=== PATIENT | female | born 1935 | race Caucasian/White ===

== ENCOUNTER 2024-10-15 12:00 | Emergency (ER) | payer MEDICARE, OTHER, SELFPAY ==
[2024-10-15 12:01] VITALS: BP 191/103
[2024-10-15 13:00] VITALS: BP 160/76
--- NOTE | 2024-10-15 13:13 | ED.GENMED ---
History of Present Illness
<Shameka Barboza PA-C - Last Filed: 10/15/24 17:36>
General
Chief Complaint: Fall
Source: patient and family
Exam Limitations: none
Time Seen by Provider: 10/15/24 12:27
Nursing documentation reviewed up to this point in time: agreed with
History of Present Illness
History of Present Illness:
pt is a 89 y/o F
with h/o afib and valve repacement on eliquis
had mechanical fall yesterday afternoon
caregiver was with her but in another room; she had gotten dressed and fell, saying she lost her balance and landed with her R arm outstretched
she has had pain and limited ROM of R shulder since
she denied hitting her head, and has not had any obvious change in mental status
she chronically has dizziness and takes meclizine but said she was not dizzy
she had aleve this morning 10 am
if she doesn't move the arm,s he feels better
no chest pain, rib pain, headache, neck pain, hip pain
Past History
<Shameka Barboza PA-C - Last Filed: 10/15/24 17:36>
Past History
ED Past Medical History: HTN, Hypercholesterolemia and Valvular disease
ED Past Surgical History: Gynecological
Social History
Tobacco: Non-smoker
Review of Systems
<Shameka Barboza PA-C - Last Filed: 10/15/24 17:36>
Review of Systems
Allergies reviewed?: Yes
All Other Systems: Not applicable
Phy Exam
<Shameka Barboza PA-C - Last Filed: 10/15/24 17:36>
Physical Exam
Physical Exam:
GENERAL: Alert , in no apparent distress
HEAD: NCAT
NECK: no midline tenderness, active ROM intact, no paraspinal muscle tenderness;
EYE: pupils equal and reactive, EOMs intact.
ENT: o/p clr, mmm. no hemotympanum
CARDIAC: Regular rate and rhythm, no edema
LUNGS: Clear breath sounds bilaterally, no acute respiratory distress, no wheezes/rales/rhonchi
ABDOMEN: Soft, without focal tenderness, no r/g, no cvat
NEUROLOGICAL: Alert and oriented, no focal neuro deficits, CN intact, 5/5 strength, sensation intact
SKIN: Warm and dry,
MUSCULOSKELETAL: tender R shoulder joint with very limited painful ROM of the arm; no deformity; no humerus, forearm/elbow/hand tendenress;
PSYCH: Normal and appropriate interaction.
Course
<Shameka Barboza PA-C - Last Filed: 10/15/24 17:36>
Orders/Labs/Results
Orders:
Orders
10/15/24 13:10
CT Cervical Spine W/o Iv Contr Urgent
Comment:
Reason For Exam: fall
Hydrocodone 5/APAP 325 [Kuna 5/325] 1 tablet PO NOW STA
CR Chest - 2 Views Urgent
Comment:
Reason For Exam: luan
Shoulder, Right, Trauma [CR Shoulder, Trauma - Right] Urgent
Comment:
Reason For Exam: fall R shoulder pain
10/15/24 13:11
CT Head W/o Iv Contrast Urgent
Comment:
Reason For Exam: fall on eliquis
10/15/24 17:20
CR Shoulder - Right Min 2 View Urgent
Comment:
Reason For Exam: post reduction
Vital Signs
Initial and Last Documented VS:
Initial Vital Signs
Temp Pulse Resp BP Pulse Ox
36.8 C 102 18 191/103 97
10/15/24 12:01 10/15/24 12:01 10/15/24 12:01 10/15/24 12:01 10/15/24 12:01
Last Documented Vital Signs
Temp Pulse Resp BP Pulse Ox
36.8 C 102 18 127/80 97
10/15/24 12:01 10/15/24 12:01 10/15/24 12:01 10/15/24 16:03 10/15/24 12:01
<Mendoza Chin DO - Last Filed: 10/15/24 16:26>
Orders/Labs/Results
Orders:
Orders
10/15/24 13:10
CT Cervical Spine W/o Iv Contr Urgent
Comment:
Reason For Exam: fall
Hydrocodone 5/APAP 325 [Kuna 5/325] 1 tablet PO NOW STA
CR Chest - 2 Views Urgent
Comment:
Reason For Exam: luan
Shoulder, Right, Trauma [CR Shoulder, Trauma - Right] Urgent
Comment:
Reason For Exam: fall R shoulder pain
10/15/24 13:11
CT Head W/o Iv Contrast Urgent
Comment:
Reason For Exam: fall on eliquis
10/15/24 17:20
CR Shoulder - Right Min 2 View Urgent
Comment:
Reason For Exam: post reduction
Vital Signs
Initial and Last Documented VS:
Initial Vital Signs
Temp Pulse Resp BP Pulse Ox
36.8 C 102 18 191/103 97
10/15/24 12:01 10/15/24 12:01 10/15/24 12:01 10/15/24 12:01 10/15/24 12:01
Last Documented Vital Signs
Temp Pulse Resp BP Pulse Ox
36.8 C 102 18 127/80 97
10/15/24 12:01 10/15/24 12:01 10/15/24 12:01 10/15/24 16:03 10/15/24 12:01
Procedures
<Shameka Barboza PA-C - Last Filed: 10/15/24 17:36>
Joint/Fracture Reduction
Right Anterior Shoulder:
Indication for procedure:: RIGHT ANTERIOR SHOULDER DISLOCATION
Procedure completed by: SHAMEKA BARBOZA
Consent form signed: No
Anesthesia/sedation: 1% Lidocaine and Injection to joint space
Injury was: closed
Further treatement: needs re-check only
Post reduction exam: stable
Capillary Refill: normal
Normal distal neurovascular exam?: Yes
<Shameka Barboza PA-C - Last Filed: 10/15/24 17:36>
MDM/Problems Addressed
Differential Diagnosis Includes:
shoulder dislocation, shoulder fracture, head injury
MDM/Problems Addressed:
89 y/o F
fell yesterday with outstretched arm
unable to move shoulder
no rib pain/trouble breathing
no head strike but on eliquis
neuro intact
very limited painful ROM of shoulder, step off concerning for fx/dislocation
xray indep reviewed and shows anterior shoulder disloctiaon, no fx
head/neck ct no acute dinfings
cxr clear
intraarticular lidocaine injection 5 cc lidocaine 1%
traction and external rotation and hsoulder was reduced
xray confirmed
dc sling, fu ortho
<Shameka Barboza PA-C - Last Filed: 10/15/24 17:36>
*Critical Care Note
Total Time (30-74mins, 75-104mins- exclusive of procedures): Not Applicable
ED Attending Note
<Shameka Barboza PA-C - Last Filed: 10/15/24 17:36>
-
Portions of this chart may have been created with voice recognition software.� Occasional wrong word or��sound alike� substitutions may have occurred due to the inherent limitations of voice recognition software.
<Mendoza Chin DO - Last Filed: 10/15/24 16:26>
ED Attending Note
Patient seen and examined by attending physician: Yes
I performed a history and physical exam of patient and discussed management with resident, I reviewed resident's note and agree with documented findings and plan of care.: Yes
ED Attending Note:
Seen with PA, agree with assessment plan elderly female status post fall dislocated right shoulder
Discharge Plan
Departure
Patient Disposition: Home (Routine Discharge)
Date of Disposition: 10/15/24
Time of Disposition: 17:30
Patient with high blood pressure during this ER visit?: No
Condition: Fair
Covid-19: Not Applicable
Discharge Problem:
Anterior shoulder dislocation, Fall
Prescriptions:
No Action
isosorbide mononitrate 30 mg tablet extended release 24 hr
30 mg PO DAILY
hydralazine 25 mg tablet
25 mg PO DAILYPRN PRN (Reason: high blood pressure)
meclizine 12.5 mg tablet
12.5 mg PO BID
diltiazem HCl 360 mg capsule,extended release 24hr
360 mg PO DAILY
simvastatin 20 mg tablet
20 mg PO HS
furosemide 20 mg tablet
20 mg PO DAILYPRN PRN (Reason: fluid collections)
ezetimibe 10 mg tablet
10 mg PO DAILY
metoprolol tartrate 25 mg tablet
25 mg PO BID
dexlansoprazole 30 mg capsule,biphase delayed releas
30 mg PO DAILY
Eliquis 2.5 mg tablet
2.5 mg PO BID
mupirocin 2 % Ointment
1 applic TOPICAL BID
zolpidem 10 mg Tablet
10 mg PO HS
Rx Instructions:
08/23/2023, patient filled this medication on 08/03/2023 for 30 tablets according to PDMP.
amoxicillin 500 mg Capsule
500 mg PO Q8H Qty: 12 0RF
Referrals:
Laly Ortega MD [Family Provider] - Follow up in 2-3 days
Vignesh Ge MD [Active] - Follow up in 5-7 days (ORTHO)
Activity Restrictions/Additional Instructions:
DAIN DISLOCATED HER SHOULDER BUT IT WAS PUT BACK IN PLACE
KEEP HER IN THE SLING
HAVE HER SEE AN ORTHOPEDIST FOR FOLLOW UP
TYLENOL EVERY 8 HOURS NEEDED FOR PAIN
ICE OFF AND ON
HEAD/NECK SHOWED NO SIGNS OF TRAUMA
RETURN FOR ANY COCNERNS.
Interventions
Interventions:
*Risk Screen - Suicide Last Done: 10/15/24 12:01
*General Assessment Last Done: 10/15/24 12:01
*Neglect/Abuse Screening Last Done: 10/15/24 12:01
*ED COVID-19 Vaccine History Last Done: 10/15/24 12:01
ED-Musculoskeletal Assessment Last Done: 10/15/24 13:01
ED- Neurological Assessment Last Done: 10/15/24 13:01
ED-Skin Assessment Last Done: 10/15/24 13:01
Discharge Date and Time
Print Language: Vincentian
[2024-10-15] MEDS: NORCO 5/325 1 TABLET PO (13:16)
[2024-10-15 16:03] VITALS: BP 127/80
== END 2024-10-15 17:45 | disposition home or self-care (01) ==
LOC: EMR 12:00
PROVIDERS: EMERGENCY PHYSICIAN Emergency Medicine; FAMILY PHYSICIAN Internal Medicine
DX: S43.004A Unspecified dislocation of right shoulder joint, initial encounter (principal); W01.0XXA Fall on same level from slipping, tripping and stumbling without subsequent striking against object, initial encounter; I48.91 Unspecified atrial fibrillation; I10 Essential (primary) hypertension; E78.00 Pure hypercholesterolemia, unspecified; Z79.01 Long term (current) use of anticoagulants
CPT/HCPCS: 99283; 23650; 70450; 71046; 72125; 73030

== ENCOUNTER 2024-10-16 14:08 | Emergency (ER) | payer MEDICARE, OTHER, SELFPAY ==
[2024-10-16] VITALS (13 sets, daily range): BP systolic 123–168; BP diastolic 63–102
--- NOTE | 2024-10-16 14:28 | ED.GENMED ---
History of Present Illness
<Bart Estrada PA-C - Last Filed: 10/16/24 18:22>
General
Chief Complaint: Musculo-Skeletal Complaint
Source: patient
Time Seen by Provider: 10/16/24 14:20
History of Present Illness
History of Present Illness:
89-year-old Albanian-speaking female with past medical history of hypertension, hyperlipidemia, atrial fibrillation, status post aortic valve replacement presenting to the emergency department for reevaluation after she was seen here yesterday when
she had an accidental fall which caused her to have a right anterior shoulder dislocation which was reduced without complication but still having pain when she is up and moving. Patient has been using the sling as directed except she did take the
sling off while she was sleeping last night. No new falls or injuries, no weakness or numbness. No other concerns. Daughter has yet to contact the orthopedic office for follow-up visit.
Past History
<Bart Estrada PA-C - Last Filed: 10/16/24 18:22>
Past History
ED Past Medical History: Arrthythmia, HTN, Hypercholesterolemia and Valvular disease
ED Past Surgical History: Cardiac and Gynecological
Social History
Tobacco: Non-smoker
Alcohol: None
Drug: None
Personal:
Living: with family
Review of Systems
<Bart Estrada PA-C - Last Filed: 10/16/24 18:22>
Review of Systems
All Other Systems: ROS reviewed and negative except as documented in HPI and ROS
Phy Exam
<Bart Estrada PA-C - Last Filed: 10/16/24 18:22>
Physical Exam
Physical Exam:
GENERAL: Alert , in no apparent distress
EYE: conjunctiva clear
Head: Normocephalic atraumatic
NECK: Supple,
ENT: mmm.
LUNGS: no acute respiratory distress
NEUROLOGICAL: Alert and oriented
SKIN: Warm and dry, skin intact.
MUSCULOSKELETAL: well perfused. Right shoulder: No obvious deformity and no focal tenderness. Sling in place. Did not assess range of motion of the right shoulder but patient able to range of motion the right elbow, wrist and digits without
difficulty. Easily palpable radial pulse. Sensation intact throughout all digits.
PSYCH: Normal and appropriate interaction.
Scores
<Bart Estrada PA-C - Last Filed: 10/16/24 18:22>
Heart Failure Risk
Heart Failure Risk Score: Not Applicable
Heart Score for Chest Pain Patients
STEMI patient?: Not applicable
Withdrawal Assessment of Alcohol
Withdrawal Assessment Completed?: Not applicable
Course
<Bart Estrada PA-C - Last Filed: 10/16/24 18:22>
Orders/Labs/Results
Orders:
Orders
10/16/24 14:20
Shoulder, Right, Trauma [CR Shoulder, Trauma - Right] Urgent
Comment:
Reason For Exam: pain
10/16/24 16:20
Propofol [Diprivan] 20 ml .ROUTE .STK-MED
10/16/24 16:40
Shoulder, Right 2 Views [CR Shoulder - Right Min 2 View] Urgent
Comment: portable
Reason For Exam: post reduction
Vital Signs
Initial and Last Documented VS:
Initial Vital Signs
Temp Pulse Resp BP Pulse Ox
98.0 F 96 20 168/90 96
10/16/24 14:11 10/16/24 14:11 10/16/24 14:11 10/16/24 14:11 10/16/24 14:11
Last Documented Vital Signs
Temp Pulse Resp BP Pulse Ox
98.1 F 82 20 135/84 97
10/16/24 17:18 10/16/24 17:18 10/16/24 17:18 10/16/24 17:18 10/16/24 17:18
<Mendoza Chin DO - Last Filed: 10/16/24 16:44>
Orders/Labs/Results
Orders:
Orders
10/16/24 14:20
Shoulder, Right, Trauma [CR Shoulder, Trauma - Right] Urgent
Comment:
Reason For Exam: pain
10/16/24 16:20
Propofol [Diprivan] 20 ml .ROUTE .STK-MED
10/16/24 16:40
Shoulder, Right 2 Views [CR Shoulder - Right Min 2 View] Urgent
Comment: portable
Reason For Exam: post reduction
Vital Signs
Initial and Last Documented VS:
Initial Vital Signs
Temp Pulse Resp BP Pulse Ox
98.0 F 96 20 168/90 96
10/16/24 14:11 10/16/24 14:11 10/16/24 14:11 10/16/24 14:11 10/16/24 14:11
Last Documented Vital Signs
Temp Pulse Resp BP Pulse Ox
98.1 F 82 20 135/84 97
10/16/24 17:18 10/16/24 17:18 10/16/24 17:18 10/16/24 17:18 10/16/24 17:18
Procedures
<Bart Estrada PA-C - Last Filed: 10/16/24 18:22>
Moderate Sedation
ASA Risk Score: Class II
Chart and allergies reviewed: Yes
Consent for anesthesia obtained: Yes
Time out completed (validating right patient & procedure): Yes
Moderate Sedation Start Time(when first medication is given): 16:38
History of difficult intubation: No
Airway free of obstruction: Yes
Patient has a gag reflex: Yes
Patient is able to open mouth: Yes
Patient has no dentures: No
Patient has no loose teeth: Yes
Medication administered by Provider during Moderate Sedation: IV Propofol (mg)
Total dose administered: 40
Time drug administered: 16:38
Moderate Sedation Procedure End Time: 16:48
Joint/Fracture Reduction
Right Shoulder:
Indication for procedure:: Dislocation
Procedure completed by: Elsy/Natalie
Consent form signed: Yes
Joint reduced: with anesthesia sedation
Injury was: closed
Further treatement: needs further treatment
Post reduction exam: stable
Capillary Refill: normal
<Bart Estrada PA-C - Last Filed: 10/16/24 18:22>
MDM/Problems Addressed
Differential Diagnosis Includes:
reoccuring dislocation/subluxation, non-displaced fx, pain post procedure, ligamentous/tendon injury/rotator cuff injury
MDM/Problems Addressed:
89-year-old female presenting back to the emergency department for reevaluation after being seen yesterday for right shoulder dislocation status post closed reduction of the right shoulder. Patient noting continued pain when she is up and moving.
She is here neurovascularly intact. There does not appear to be any obvious deformity of the right shoulder presently. Will reobtain x-ray to further evaluate and rule out reoccurring dislocation/subluxation. Due to patient being on Eliquis she
is not a candidate for anti-inflammatories. Discussed with family possibility for short-term course of Percocet/Vicodin for pain control but discuss side effects including constipation and sleepiness/drowsiness. Caregiver/daughter expressed
understanding. Disposition pending
<Bart Estrada PA-C - Last Filed: 10/16/24 18:22>
*Radiology
Radiology exam reviewed: preliminary read by ED provider (Closed right anterior shoulder dislocation)
*Pulse Oximetry
Patient hypoxic: no
*Critical Care Note
Total Time (30-74mins, 75-104mins- exclusive of procedures): Not Applicable
Data Reviewed
Review of Other/Old Records Reveals: Records and Radiology Studies
Source: records and family
<Bart Estrada PA-C - Last Filed: 10/16/24 18:22>
Patient Management
Social determinants of health affecting care: Living situation and Strong social support
Escalation/DeEscalation of care consider admission/obs:
Patient's x-ray ended up showing a closed right anterior shoulder dislocation. Sedation and procedure note as above. Patient tolerated procedure well. She remained in a shoulder sling following the procedure and was advised to remain within the
sling due to concern for possibility of spontaneous dislocation. Daughter will ensure close follow-up with orthopedist. Short-term prescription for Percocet sent to patient's pharmacy to be used as needed for pain. Patient is otherwise stable for
discharge home. Family aware of return precautions.
ED Attending Note
<Bart Estrada PA-C - Last Filed: 10/16/24 18:22>
-
Portions of this chart may have been created with voice recognition software.� Occasional wrong word or��sound alike� substitutions may have occurred due to the inherent limitations of voice recognition software.
<Mendoza Chin DO - Last Filed: 10/16/24 16:44>
ED Attending Note
Patient seen and examined by attending physician: Yes
I performed a history and physical exam of patient and discussed management with resident, I reviewed resident's note and agree with documented findings and plan of care.: Yes
ED Attending Note:
Seen with PA examined independently agree with assessment plan seen yesterday shoulder dislocation reduced, popped out again today with minimal movement, x-ray noted, reduced without difficulty discussed with daughter may require orthopedic
intervention at some point
Discharge Plan
Departure
Patient Disposition: Home (Routine Discharge)
Date of Disposition: 10/16/24
Time of Disposition: 17:13
Patient with high blood pressure during this ER visit?: No
Discharge Problem:
Closed dislocation of right shoulder
Instructions: Shoulder Dislocation (DC)
Prescriptions:
New
oxycodone-acetaminophen [Percocet] 5-325 mg tablet
1 tab PO Q6HPRN PRN (Reason: pain) Qty: 6 0RF
No Action
isosorbide mononitrate 30 mg tablet extended release 24 hr
30 mg PO DAILY
hydralazine 25 mg tablet
25 mg PO DAILYPRN PRN (Reason: high blood pressure)
meclizine 12.5 mg tablet
12.5 mg PO BID
diltiazem HCl 360 mg capsule,extended release 24hr
360 mg PO DAILY
simvastatin 20 mg tablet
20 mg PO HS
furosemide 20 mg tablet
20 mg PO DAILYPRN PRN (Reason: fluid collections)
ezetimibe 10 mg tablet
10 mg PO DAILY
metoprolol tartrate 25 mg tablet
25 mg PO BID
dexlansoprazole 30 mg capsule,biphase delayed releas
30 mg PO DAILY
Eliquis 2.5 mg tablet
2.5 mg PO BID
mupirocin 2 % Ointment
1 applic TOPICAL BID
zolpidem 10 mg Tablet
10 mg PO HS
Rx Instructions:
08/23/2023, patient filled this medication on 08/03/2023 for 30 tablets according to PDMP.
amoxicillin 500 mg Capsule
500 mg PO Q8H Qty: 12 0RF
Referrals:
Liat Colunga MD [Family Provider] -
Interventions
Interventions:
*General Assessment Last Done: 10/16/24 14:11
*ED COVID-19 Vaccine History Last Done: 10/16/24 14:19
*Nursing Disposition Last Done: 10/16/24 17:40
ED-Musculoskeletal Assessment Last Done: 10/16/24 15:14
Discharge Date and Time
Discharge Date/Time: 10/16/24 17:41
Print Language: Albanian
== END 2024-10-16 17:41 | disposition home or self-care (01) ==
LOC: EMR 14:08
PROVIDERS: EMERGENCY PHYSICIAN Emergency Medicine; FAMILY PHYSICIAN Internal Medicine
DX: S43.014A Anterior dislocation of right humerus, initial encounter (principal); W19.XXXA Unspecified fall, initial encounter; I10 Essential (primary) hypertension; E78.00 Pure hypercholesterolemia, unspecified; I48.91 Unspecified atrial fibrillation; Z95.2 Presence of prosthetic heart valve; Z79.01 Long term (current) use of anticoagulants
CPT/HCPCS: 23650; 99152; 99285; 73030

== ENCOUNTER 2024-10-23 12:25 | Emergency (ER) | payer MEDICARE, OTHER, SELFPAY ==
[2024-10-23] VITALS (13 sets, daily range): BP systolic 130–166; BP diastolic 65–138; BMI 34.2
--- NOTE | 2024-10-23 13:26 | ED.MUSCINJ ---
HPI-Injury
<Guzman Ocampo PA-C - Last Filed: 10/23/24 15:41>
General
Chief Complaint: Musculo-Skeletal Complaint
Source: patient
Exam Limitations: none
Time Seen by Provider: 10/23/24 12:59
History of Present Illness-Injury
Initial Injury comments:
89-year-old female presents via EMS from home with complaints of recurrent right shoulder discomfort. She has been here recently for right shoulder dislocation x 2. She feels as though went out during her sleep last night. She is accompanied by
her daughter does most of the talking. No other complaints at this time
Past History
<Guzman Ocampo PA-C - Last Filed: 10/23/24 15:41>
Past History
ED Past Medical History: Arrthythmia, HTN, Hypercholesterolemia and Valvular disease
ED Past Surgical History: Cardiac and Gynecological
Social History
Tobacco: Non-smoker
Alcohol: None
Drug: None
Personal:
Living: with family
Phy Exam
<JUAN Barcenas Last Filed: 10/23/24 15:41>
Physical Exam
Physical Exam:
General: Well-appearing female nontoxic no acute respiratory distress
MSK: pain to right shoulder, mild deformity, good ROM right elbow
Neuro: alert, oriented, good sensation to right hand
Heart: Regular rate and rhythm
Lungs: Clear no wheeze
Injury Course
<JUAN Barcenas Last Filed: 10/23/24 15:41>
Orders/Labs/Results
Orders:
Orders
10/23/24 12:30
Shoulder, Right, Trauma [CR Shoulder, Trauma - Right] Urgent
Comment:
Reason For Exam: disocation
10/23/24 13:38
HYDROmorphone [Dilaudid] 1 mg IV NOW STA
10/23/24 14:27
Propofol [Diprivan] 20 ml .ROUTE .STK-MED
10/23/24 14:49
Shoulder, Right 1 View [CR Shoulder - Right 1 View] Urgent
Comment:
Reason For Exam: post reduction
<Amish Byesr MD - Last Filed: 10/23/24 14:40>
Orders/Labs/Results
Orders:
Orders
10/23/24 12:30
Shoulder, Right, Trauma [CR Shoulder, Trauma - Right] Urgent
Comment:
Reason For Exam: disocation
10/23/24 13:38
HYDROmorphone [Dilaudid] 1 mg IV NOW STA
10/23/24 14:27
Propofol [Diprivan] 20 ml .ROUTE .STK-MED
10/23/24 14:49
Shoulder, Right 1 View [CR Shoulder - Right 1 View] Urgent
Comment:
Reason For Exam: post reduction
Procedures
<Guzman Ocampo PA-C - Last Filed: 10/23/24 15:41>
Moderate Sedation
ASA Risk Score: Class II
Chart and allergies reviewed: Yes
Consent for anesthesia obtained: Yes
Time out completed (validating right patient & procedure): Yes
Moderate Sedation Start Time(when first medication is given): 14:47
History of difficult intubation: No
Airway free of obstruction: Yes
Patient has a gag reflex: Yes
Patient is able to open mouth: Yes
Patient has no dentures: Yes
Patient has no loose teeth: Yes
Medication administered by Provider during Moderate Sedation: IV Propofol (mg)
Total dose administered: 20
Time drug administered: 14:47
Moderate Sedation Procedure End Time: 14:59
<Guzman Ocampo PA-C - Last Filed: 10/23/24 15:41>
MDM/Problems Addressed
Differential Diagnosis Includes:
Right shoulder pain. Question possible recurrent dislocation. X-rays pending
<Guzman Ocampo PA-C - Last Filed: 10/23/24 15:41>
*Critical Care Note
Total Time (30-74mins, 75-104mins- exclusive of procedures): Not Applicable
<Guzman Ocampo PA-C - Last Filed: 10/23/24 15:41>
Update Note
Update Note:
Initial x-rays demonstrated anterior dislocation of the right shoulder. An attempt was made to reduce the shoulder after patient was given IV pain medicine however the patient was in too much discomfort to proceed. We then changed plans for
moderate sedation. Written consent was obtained for moderate sedation using propofol. Sedation performed by emergency room attending. 20 mg of propofol were required. The shoulder was then reduced using slight longitudinal traction and external
rotation. The shoulder was then abducted. She had good range of motion. Postreduction films demonstrated successful reduction of the right shoulder. A sling was applied. She was recovered from sedation and discharged.
ED Attending Note
<Guzman Ocampo PA-C - Last Filed: 10/23/24 15:41>
-
Portions of this chart may have been created with voice recognition software.� Occasional wrong word or��sound alike� substitutions may have occurred due to the inherent limitations of voice recognition software.
<Amish Byers MD - Last Filed: 10/23/24 14:40>
ED Attending Note
Patient seen and examined by attending physician: Yes
I performed the substantive portion of visit, reviewed & personally made and approve the management plan that is documented in note by myself or CORBY.: Yes
ED Attending Note:
I have seen and evaluated the patient with a [id number] encounter. I have spoken to the [PA] and involved in the medical history, the physical exam, medical decision making.
Evaluation and management service: agree unless noted differently below.
Results interpretation: agree unless noted differently below.
89-year-old woman with history of A-fib on Eliquis presenting to the emergency department shoulder pain. Patient states that she dislocated her shoulder last week and she feels as it came out while she was sleeping last night. During my evaluation
patient is resting does appear slightly uncomfortable. She does have a step-off and boxy appearance to her right shoulder. 2+ radial pulses. She does have normal sensation. X-ray per my interpretation was recurrent shoulder dislocation. Per
chart review patient shoulder was reduced with propofol last time. Will trial again.
Discharge Plan
Departure
Patient Disposition: Home (Routine Discharge)
Date of Disposition: 10/23/24
Time of Disposition: 15:40
Patient with high blood pressure during this ER visit?: No
Discharge Problem:
Anterior dislocation of right shoulder
Instructions: MODERATE SEDATION ADULT
Prescriptions:
No Action
isosorbide mononitrate 30 mg tablet extended release 24 hr
30 mg PO DAILY
hydralazine 25 mg tablet
25 mg PO DAILYPRN PRN (Reason: high blood pressure)
meclizine 12.5 mg tablet
12.5 mg PO BID
diltiazem HCl 360 mg capsule,extended release 24hr
360 mg PO DAILY
simvastatin 20 mg tablet
20 mg PO HS
furosemide 20 mg tablet
20 mg PO DAILYPRN PRN (Reason: fluid collections)
ezetimibe 10 mg tablet
10 mg PO DAILY
metoprolol tartrate 25 mg tablet
25 mg PO BID
dexlansoprazole 30 mg capsule,biphase delayed releas
30 mg PO DAILY
Eliquis 2.5 mg tablet
2.5 mg PO BID
mupirocin 2 % Ointment
1 applic TOPICAL BID
zolpidem 10 mg Tablet
10 mg PO HS
Rx Instructions:
08/23/2023, patient filled this medication on 08/03/2023 for 30 tablets according to PDMP.
amoxicillin 500 mg Capsule
500 mg PO Q8H Qty: 12 0RF
oxycodone-acetaminophen [Percocet] 5-325 mg tablet
1 tab PO Q6HPRN PRN (Reason: pain) Qty: 6 0RF
Referrals:
Liat Colunga MD [Family Provider] -
Activity Restrictions/Additional Instructions:
Use sling at all times. Please follow-up with orthopedics as planned
Interventions
Interventions:
*Risk Screen - Suicide Last Done: 10/23/24 12:27
*General Assessment Last Done: 10/23/24 12:27
*Neglect/Abuse Screening Last Done: 10/23/24 12:27
ED- Fall Risk Assessment Last Done: 10/23/24 12:42
*ED COVID-19 Vaccine History Last Done: 10/23/24 12:43
ED-Musculoskeletal Assessment Last Done: 10/23/24 12:42
Discharge Date and Time
Print Language: [place]
[2024-10-23] MEDS: DILAUDID 1 MG IV (13:55)
== END 2024-10-23 16:02 | disposition home or self-care (01) ==
LOC: EMR 12:25
PROVIDERS: EMERGENCY PHYSICIAN Student in an Organized Health Care Education/Training Program; FAMILY PHYSICIAN Internal Medicine
DX: M24.411 Recurrent dislocation, right shoulder (principal); S43.014A Anterior dislocation of right humerus, initial encounter; X58.XXXA Exposure to other specified factors, initial encounter; E78.00 Pure hypercholesterolemia, unspecified; I10 Essential (primary) hypertension; I38 Endocarditis, valve unspecified
CPT/HCPCS: 99285; 23650; 99152; 73020; 73030

== ENCOUNTER 2024-11-04 12:17 | Emergency (ER) | payer MEDICARE, OTHER, SELFPAY ==
[2024-11-04] VITALS (17 sets, daily range): BP systolic 120–173; BP diastolic 54–99; BMI 36.7
--- NOTE | 2024-11-04 18:12 | ED.GENMED ---
History of Present Illness
General
Chief Complaint: Musculo-Skeletal Complaint
Source: patient
Exam Limitations: none
Time Seen by Provider: 11/04/24 17:15
Nursing documentation reviewed up to this point in time: agreed with
History of Present Illness
History of Present Illness:
Patient presents to ED secondary to sudden onset right shoulder pain, when she reached for a napkin this afternoon. 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
Patient has an appointment with an orthopedic surgeon next week. Denies direct trauma. Denies loss of sensation or weakness.
Past History
Past History
ED Past Medical History: Arrthythmia, HTN, Hypercholesterolemia and Valvular disease
ED Past Surgical History: Cardiac and Gynecological
Social History
Tobacco: Non-smoker
Alcohol: None
Drug: None
Personal:
Living: with family
Review of Systems
Review of Systems
Allergies reviewed?: Yes
All Other Systems: ROS reviewed and negative except as documented in HPI and ROS
Constitutional: Reports no symptoms
Musculoskeletal: Reports other (shoulder pain)
Skin: Reports no symptoms
Neurological: Reports no symptoms
Phy Exam
Physical Exam
Physical Exam:
Physical Exam
General: mild painful distress, not acutely ill. afebrile
Head: nc/at. eomi
Neck: supple. normal range of motion
Neuro: alert and oriented x 3. no focal neurological deficits
Skin: no rash
Psychiatric: well kept. interactive and cooperative
Extremities: diffuse right shoulder tenderness to palpation, with limited ROM due to pain
Course
Orders/Labs/Results
Orders:
Orders
11/04/24 12:23
Shoulder, Right, Trauma [CR Shoulder, Trauma - Right] Urgent
Comment:
Reason For Exam: injury
11/04/24 18:14
Propofol [Diprivan] 20 ml .ROUTE .STK-MED
11/04/24 18:27
CR Shoulder - Right 1 View Urgent
Comment: portable
Reason For Exam: post reduction right shoulder
Vital Signs
Initial and Last Documented VS:
Initial Vital Signs
Temp Pulse Resp BP Pulse Ox
98.3 F 83 16 151/80 98
11/04/24 12:21 11/04/24 12:21 11/04/24 12:21 11/04/24 12:21 11/04/24 12:21
Last Documented Vital Signs
Temp Pulse Resp BP Pulse Ox
97.8 F 80 23 148/77 98
11/04/24 19:03 11/04/24 19:04 11/04/24 19:04 11/04/24 19:04 11/04/24 19:30
Procedures
Moderate Sedation
ASA Risk Score: Class I
Chart and allergies reviewed: Yes
Consent for anesthesia obtained: Yes
Time out completed (validating right patient & procedure): Yes
Moderate Sedation Start Time(when first medication is given): 18:23
History of difficult intubation: No
Airway free of obstruction: Yes
Patient has a gag reflex: Yes
Patient is able to open mouth: Yes
Patient has no dentures: Yes
Patient has no loose teeth: Yes
Medication administered by Provider during Moderate Sedation: IV Propofol (mg)
Total dose administered: 30
Time drug administered: 18:23
Moderate Sedation Procedure End Time: 18:33
Joint/Fracture Reduction
Right Shoulder:
Indication for procedure:: Shoulder dislocation
Procedure completed by: John Collins M.D.
Consent form signed: Yes
Anesthesia/sedation: Moderate sedation
Injury was: closed
Further treatement: no treatment needed
Post reduction exam: stable
Capillary Refill: normal
MDM/Problems Addressed
MDM/Problems Addressed:
History and exam, along with x-ray consistent with recurrent right anterior shoulder dislocation.
Procedure consent on the chart.
Shoulder successfully reduced after moderate sedation, with external rotation. Repeat x-ray confirms successful reduction.
Pt advised to f/u with orthopaedic surgeon next week, as scheduled, for further evaluation and treatment.
*Critical Care Note
Total Time (30-74mins, 75-104mins- exclusive of procedures): Not Applicable
ED Attending Note
-
Portions of this chart may have been created with voice recognition software.� Occasional wrong word or��sound alike� substitutions may have occurred due to the inherent limitations of voice recognition software.
Discharge Plan
Departure
Patient Disposition: Home (Routine Discharge)
Date of Disposition: 11/04/24
Time of Disposition: 19:21
Patient with high blood pressure during this ER visit?: Yes
Condition: Good
Discharge Problem:
Dislocation closed, shoulder
Instructions: Shoulder Dislocation (DC)
Prescriptions:
No Action
isosorbide mononitrate 30 mg tablet extended release 24 hr
30 mg PO DAILY
hydralazine 25 mg tablet
25 mg PO DAILYPRN PRN (Reason: high blood pressure)
meclizine 12.5 mg tablet
12.5 mg PO BID
diltiazem HCl 360 mg capsule,extended release 24hr
360 mg PO DAILY
simvastatin 20 mg tablet
20 mg PO HS
furosemide 20 mg tablet
20 mg PO DAILYPRN PRN (Reason: fluid collections)
ezetimibe 10 mg tablet
10 mg PO DAILY
metoprolol tartrate 25 mg tablet
25 mg PO BID
dexlansoprazole 30 mg capsule,biphase delayed releas
30 mg PO DAILY
Eliquis 2.5 mg tablet
2.5 mg PO BID
mupirocin 2 % Ointment
1 applic TOPICAL BID
zolpidem 10 mg Tablet
10 mg PO HS
Rx Instructions:
08/23/2023, patient filled this medication on 08/03/2023 for 30 tablets according to PDMP.
amoxicillin 500 mg Capsule
500 mg PO Q8H Qty: 12 0RF
oxycodone-acetaminophen [Percocet] 5-325 mg tablet
1 tab PO Q6HPRN PRN (Reason: pain) Qty: 6 0RF
Referrals:
UNKNOWN - PT DOES,NOT KNOW [Family Provider] -
Activity Restrictions/Additional Instructions:
As discussed, please follow-up with orthopedic surgeon next week as scheduled, for further evaluation and treatment. Until then, continue to use shoulder immobilizer.
Interventions
Interventions:
*Risk Screen - Suicide Last Done: 11/04/24 12:21
*General Assessment Last Done: 11/04/24 16:39
*Neglect/Abuse Screening Last Done: 11/04/24 12:21
ED- Fall Risk Assessment Last Done: 11/04/24 16:39
*ED COVID-19 Vaccine History Last Done: 11/04/24 16:39
*Nursing Disposition Last Done: 11/04/24 20:10
ED-Musculoskeletal Assessment Last Done: 11/04/24 16:39
Discharge Date and Time
Discharge Date/Time: 11/04/24 20:11
Print Language: [place]
== END 2024-11-04 20:11 | disposition home or self-care (01) ==
LOC: EMR 12:17
PROVIDERS: EMERGENCY PHYSICIAN Emergency Medicine
DX: M24.411 Recurrent dislocation, right shoulder (principal); I10 Essential (primary) hypertension; E78.00 Pure hypercholesterolemia, unspecified; I48.91 Unspecified atrial fibrillation; D64.9 Anemia, unspecified; Z95.2 Presence of prosthetic heart valve
CPT/HCPCS: 99285; 23650; 99152; 73020; 73030

== ENCOUNTER 2024-11-20 10:33 | Emergency (ER) | payer MEDICARE, OTHER, SELFPAY ==
[2024-11-20] VITALS (9 sets, daily range): BP systolic 119–165; BP diastolic 57–83; BMI 33.9
--- NOTE | 2024-11-20 11:20 | ED.GENMED ---
History of Present Illness
General
Chief Complaint: Musculo-Skeletal Complaint
Source: family (Daughter)
Time Seen by Provider: 11/20/24 11:14
History of Present Illness
History of Present Illness:
Patient with sudden right shoulder pain to 2 AM. History of recurrent dislocation. Feels like she dislocated her shoulder. No other complaint. Pain is moderate in nature.
Past History
Past History
ED Past Medical History: Arrthythmia, HTN, Hypercholesterolemia and Valvular disease
ED Past Surgical History: Cardiac and Gynecological
Social History
Tobacco: Non-smoker
Alcohol: None
Drug: None
Personal:
Living: with family
Review of Systems
Review of Systems
All Other Systems: Not applicable
Phy Exam
Physical Exam
Physical Exam:
GENERAL: Alert and oriented in no apparent distress
EYE: Orbits normal.
NECK: Supple, no significant adenopathy.
ENT: Pharynx without erythema lower dentures removed
CARDIAC: Regular rate and rhythm without any obvious murmurs.
LUNGS: Clear breath sounds,normal
ABDOMEN: Soft, without focal tenderness or distention
NEUROLOGICAL: Alert and oriented , grossly non-focal. Gait normal
SKIN: Warm and dry, no rash or lesion, no discoloration, skin intact.
MUSCULOSKELETAL: Deformity right shoulder or
PSYCH: Normal and appropriate interaction.
Course
Orders/Labs/Results
Orders:
Orders
11/20/24 11:19
Shoulder, Right 2 Views [CR Shoulder - Right Min 2 View] Urgent
Comment:
Reason For Exam: Recurrent dislocation
11/20/24 13:21
Propofol [Diprivan] 20 ml .ROUTE .STK-MED
11/20/24 14:05
CR Shoulder - Right 1 View Urgent
Reason For Exam: post reduction / portable
Vital Signs
Initial and Last Documented VS:
Initial Vital Signs
Temp Pulse Resp BP Pulse Ox
98.0 F 99 26 159/77 95
11/20/24 10:35 11/20/24 10:35 11/20/24 10:35 11/20/24 10:35 11/20/24 10:35
Last Documented Vital Signs
Temp Pulse Resp BP Pulse Ox
98.0 F 82 28 137/63 98
11/20/24 10:35 11/20/24 14:15 11/20/24 14:15 11/20/24 14:15 11/20/24 14:15
Procedures
Moderate Sedation
ASA Risk Score: Class II
Chart and allergies reviewed: Yes
Consent for anesthesia obtained: Yes
Time out completed (validating right patient & procedure): Yes
Moderate Sedation Start Time(when first medication is given): 14:20
History of difficult intubation: No
Airway free of obstruction: Yes
Patient has a gag reflex: Yes
Patient is able to open mouth: Yes
Patient has no dentures: No
Patient has no loose teeth: Yes
Medication administered by Provider during Moderate Sedation: IV Propofol (mg)
Total dose administered: 40
Time drug administered: 14:00
Moderate Sedation Procedure End Time: 14:15
Joint/Fracture Reduction
Right Shoulder:
Indication for procedure:: Dislocated shoulder
Procedure completed by: Myself and Agnes Ocampo
Joint reduced: with anesthesia sedation
Anesthesia/sedation: Moderate sedation
Injury was: closed
Further treatement: needs re-check only
Post reduction exam: stable
Capillary Refill: normal
*Critical Care Note
Total Time (30-74mins, 75-104mins- exclusive of procedures): Not Applicable
ED Attending Note
-
Portions of this chart may have been created with voice recognition software.� Occasional wrong word or��sound alike� substitutions may have occurred due to the inherent limitations of voice recognition software.
Discharge Plan
Departure
Patient Disposition: Home (Routine Discharge)
Date of Disposition: 11/20/24
Time of Disposition: 14:30
Patient with high blood pressure during this ER visit?: Yes
Discharge Problem:
Recurrent right shoulder dislocation
Instructions: Shoulder Dislocation (DC), MODERATE SEDATION ADULT, BLOOD PRESSURE
Prescriptions:
No Action
isosorbide mononitrate 30 mg tablet extended release 24 hr
30 mg PO DAILY
hydralazine 25 mg tablet
25 mg PO DAILYPRN PRN (Reason: high blood pressure)
meclizine 12.5 mg tablet
12.5 mg PO BID
diltiazem HCl 360 mg capsule,extended release 24hr
360 mg PO DAILY
simvastatin 20 mg tablet
20 mg PO HS
furosemide 20 mg tablet
20 mg PO DAILYPRN PRN (Reason: fluid collections)
ezetimibe 10 mg tablet
10 mg PO DAILY
metoprolol tartrate 25 mg tablet
25 mg PO BID
dexlansoprazole 30 mg capsule,biphase delayed releas
30 mg PO DAILY
Eliquis 2.5 mg tablet
2.5 mg PO BID
mupirocin 2 % Ointment
1 applic TOPICAL BID
zolpidem 10 mg Tablet
10 mg PO HS
Rx Instructions:
08/23/2023, patient filled this medication on 08/03/2023 for 30 tablets according to PDMP.
amoxicillin 500 mg Capsule
500 mg PO Q8H Qty: 12 0RF
oxycodone-acetaminophen [Percocet] 5-325 mg tablet
1 tab PO Q6HPRN PRN (Reason: pain) Qty: 6 0RF
Referrals:
UNKNOWN - PT DOES,NOT KNOW [Family Provider] -
Activity Restrictions/Additional Instructions:
As we discussed, call orthopedics for follow-up
Interventions
Interventions:
*General Assessment Last Done: 11/20/24 10:35
*Neglect/Abuse Screening Last Done: 11/20/24 10:35
ED- Fall Risk Assessment Last Done: 11/20/24 10:38
*ED COVID-19 Vaccine History Last Done: 11/20/24 10:35
ED-Musculoskeletal Assessment Last Done: 11/20/24 10:38
Discharge Date and Time
Print Language: Citizen [place]
== END 2024-11-20 16:06 | disposition home or self-care (01) ==
LOC: EMR 10:33
PROVIDERS: EMERGENCY PHYSICIAN Emergency Medicine
DX: M24.411 Recurrent dislocation, right shoulder (principal); E78.00 Pure hypercholesterolemia, unspecified; I10 Essential (primary) hypertension
CPT/HCPCS: 23650; 99152; 99285; 73020; 73030